=== PATIENT | female | born 1955 | race Caucasian/White ===

== ENCOUNTER 2016-05-10 06:24 | Inpatient (IN) | payer BC, OTHER ==
[2016-05-10] MEDS ORDERED: LIDOCAINE 1% 5 ML SDV ID PRN (06:50)
[2016-05-10] MEDS ORDERED: LR 1,000 ML IV ONE (06:50)
[2016-05-10] MEDS ORDERED: LIDOCAINE 1% 2 ML INJ ONE (06:51)
[2016-05-10] MEDS ORDERED: ONDANSETRON 4 MG/2 ML VIAL IVP PRN (07:04)
[2016-05-10] MEDS ORDERED: KETOROLAC 15 MG/1 ML SDV IVP ONE (07:04)
[2016-05-10] MEDS ORDERED: D5W 1/2 NS W/ 20 KCl/L 1,000 ML IV SCH (07:15)
[2016-05-10] MEDS ORDERED: CEFAZOLIN 2 GM/DEXTR 100 ML IV ONE (07:30)
[2016-05-10] MEDS ORDERED: FAMOTIDINE 20 MG TAB PO ONE (07:30)
[2016-05-10] MEDS ORDERED: CHLORHEXIDINE GLUC HIBICLENS 118 ML BTL TP ONE (07:30)
[2016-05-10] MEDS ORDERED: ROPI/epiNEPH/KETOROLAC/morphINE JOINT COCKTAIL IU ONE (07:30)
[2016-05-10] MEDS ORDERED: THROMBIN (BOVINE) 5,000 UNIT VIAL TP ONE (07:46)
[2016-05-10] MEDS ORDERED: CALCIUM CHLORIDE 1 GM/10 ML INJ ONE (07:46)
[2016-05-10] MEDS ORDERED: POLYMYXIN B SULFATE 500,000 UNIT/10 ML SYR IRR ONE (07:46)
[2016-05-10] MEDS ORDERED: fentaNYL 250 MCG/5 ML INJ ONE (07:47)
[2016-05-10] MEDS ORDERED: ROPIVACAINE HCL 150 MG/30 ML INJ ONE (07:47)
[2016-05-10] MEDS ORDERED: LIDOCAINE 2% 100 MG/5 ML SYR ONE (07:47)
[2016-05-10] MEDS ORDERED: ROCURONIUM 50 MG/5 ML VIAL ONE (07:47)
[2016-05-10] MEDS ORDERED: PROPOFOL 200 MG/20 ML VIAL ONE (07:47)
[2016-05-10] MEDS ORDERED: MIDAZOLAM 2 MG/2 ML VIAL ONE (08:24)
[2016-05-10] MEDS ORDERED: PHENYLEPHRINE HCL 100 MCG/ML SYR ONE (10:20)
[2016-05-10] MEDS ORDERED: epHEDrine SULFATE 10 MG/ML SYR ONE (10:20)
[2016-05-10] MEDS ORDERED: KETOROLAC 15 MG/1 ML SDV ONE (10:50)
[2016-05-10] MEDS: KETOROLAC 15 MG/1 ML SDV IVP SCH ×3 (11:34→23:30)
[2016-05-10] MEDS: ceFAZolin 2 GM/DEXTROSE 100 ML IV SCH ×2 (16:12→21:36)
[2016-05-10] MEDS: TAPENTADOL HCL 50 MG TAB PO PRN (21:36)
[2016-05-11] MEDS: KETOROLAC 15 MG/1 ML SDV IVP SCH (05:02)
[2016-05-11] MEDS: TAPENTADOL HCL 50 MG TAB PO PRN ×3 (07:18→15:21)
--- NOTE | 2016-05-11 08:15 | PDIAF ---
- Diagnosis Diagnosis: right shoulder djd, rotator cuff tear Code Status: Full Code - Medication Management Discharge Medications: Medications to Continue on Transfer Amoxicillin 1,000 mg PO BID 04/12/16 [Last Taken Unknown] Atorvastatin Calcium [Lipitor 40 mg (*)] 40 mg PO DAILY 04/12/16 [Last Taken ] Diazepam [Valium 10 MG (*)] 5 mg PO HS PRN 04/12/16 [Last Taken Unknown] Famciclovir [Famvir] 500 mg PO Q8H PRN 04/12/16 [Last Taken 04/19/16] Gabapentin [Neurontin 300 MG (*)] 300 mg PO HS PRN 04/12/16 [Last Taken 05/03/16 ] Ibuprofen [Motrin (*)] 400 mg PO DAILY PRN 04/12/16 [Last Taken 05/03/16] Lisinopril [Zestril 10 mg (*)] 10 mg PO DAILY 04/12/16 [Last Taken 05/10/16 05: 30] Omeprazole 40 mg PO DAILY 04/12/16 [Last Taken 05/10/16 05:30] Discharge Medications: Refer to the Discharge Home Medication list for PRN reason. - Orders Services needed: Physical Therapy Diet Recommendation: no restrictions on diet Diet Texture: Regular Texture Diet Activity/Weight Bearing Restrictions: pendulum rom. non weight bearing. sling when not performing pendulum exercises. daily dressing changes. may shower without bandage. f/u at two weeks. seek attn for increasing pain, shortness or breath, drainage, infection or other focal complaint - Follow Up Care Current Providers and Referrals: Sinan Nguyen MD [Primary Care Provider] -
[2016-05-11] MEDS: ONDANSETRON 4 MG/2 ML VIAL IVP PRN ×2 (08:17→14:48)
[2016-05-11] MEDS ORDERED: DIAZEPAM 5 MG TAB PO PRN (09:53)
[2016-05-11] MEDS: ACETAMINOPHEN 325 MG TAB PO PRN ×3 (11:02→23:54)
--- NOTE | 2016-05-11 11:31 | SOAPPROG ---
SOAP Progress Note Assessment/Plan: Assessment: s/p right tsa rev Plan: patient poorly tolerant of narcotics. difficulty controlling pain d/c when stable\ dvt precautions 05/11/16 11:28 Subjective: pain 8/10 no cp or sob tolerating po pos vomiting Objective: Vital Signs Temp Pulse Resp BP Pulse Ox 36.7 C 83 18 115/70 97 05/11/16 07:33 05/11/16 07:33 05/11/16 07:33 05/11/16 07:33 05/11/16 07:33 05/10/16 05/11/16 05/12/16 05:59 05:59 05:59 Intake Total 3679 Output Total 1650 Balance 2028 dressing intact intact digital flexion and ext decreased subj sensation at thumb no drainage xrays stable alignment no fx or lucency ICD10 Worksheet Patient Problems: Problems Problem Status Onset Arthritis of right shoulder region Acute - ICD10 Problem Qualifiers (1) Arthritis of right shoulder region
[2016-05-11 19:26] VITALS: RESP 16
[2016-05-11] MEDS ORDERED: POLYETHYLENE GLYCOL 3350 17 GM PKT PO PRN (21:39)
[2016-05-11] MEDS: ONDANSETRON DISINTEGRATING 4 MG TAB PO PRN (21:53)
[2016-05-11] MEDS ORDERED: fentaNYL 12 MCG PATCH TD ONE (22:00)
[2016-05-12] MEDS: ONDANSETRON DISINTEGRATING 4 MG TAB PO PRN ×3 (05:26→16:57)
[2016-05-12] MEDS: TAPENTADOL HCL 50 MG TAB PO PRN (05:27)
--- NOTE | 2016-05-12 06:51 | SOAPPROG ---
SOAP Progress Note Assessment/Plan: Assessment: s/p right tsa rev Plan: patient poorly tolerant of narcotics. difficulty controlling pain d/c when stable\ dvt precautions 05/11/16 11:28 Subjective: complains of pain at shoulder left elbow left small finger mod thumb numbness kidney pain no urinary difficulty Objective: Vital Signs Temp Pulse Resp BP Pulse Ox 37.0 C 99 16 125/75 H 90 L 05/12/16 04:32 05/12/16 04:32 05/12/16 04:32 05/12/16 04:32 05/12/16 04:32 05/11/16 05/12/16 05/13/16 05:59 05:59 05:59 Intake Total 3679 1600 Output Total 1650 1000 Balance 9 600 seated in bed nad dressing intact intact r,u,decreased 50% at thumb median intact digital flex and ext warm and pink ICD10 Worksheet Patient Problems: Problems Problem Status Onset Arthritis of right shoulder region Acute - ICD10 Problem Qualifiers (1) Arthritis of right shoulder region
--- NOTE | 2016-05-12 06:54 | PDIAF ---
- Diagnosis Diagnosis: right shoulder djd, rotator cuff tear Code Status: Full Code - Medication Management Discharge Medications: Medications to Continue on Transfer Amoxicillin 1,000 mg PO BID 04/12/16 [Last Taken Unknown] Atorvastatin Calcium [Lipitor 40 mg (*)] 40 mg PO DAILY 04/12/16 [Last Taken ] Famciclovir [Famvir] 500 mg PO Q8H PRN 04/12/16 [Last Taken 04/19/16] Gabapentin [Neurontin 300 MG (*)] 300 mg PO HS PRN 04/12/16 [Last Taken 05/03/16 ] Ibuprofen [Motrin (*)] 400 mg PO DAILY PRN 04/12/16 [Last Taken 05/03/16] Lisinopril [Zestril 10 mg (*)] 10 mg PO DAILY 04/12/16 [Last Taken 05/10/16 05: 30] Omeprazole 40 mg PO DAILY 04/12/16 [Last Taken 05/10/16 05:30] Diazepam [Valium 10 MG (*)] 5 mg PO HS PRN #40 tab 05/12/16 [Last Taken Unknown] Diazepam [Valium 5 MG (*)] 5 - 10 mg PO Q6HRS PRN #50 tab 05/12/16 [Last Taken Unknown] Ondansetron Odt [Zofran Odt 4 mg (*)] 4 mg PO Q4 PRN #30 tab 05/12/16 [Last Taken Unknown] Tapentadol HCl [Nucynta 50 MG (*)] 50 - 100 mg PO Q4HRS PRN #80 tab 05/12/16 [ Last Taken Unknown] Discharge Medications: Refer to the Discharge Home Medication list for PRN reason. - Orders Services needed: Physical Therapy Diet Recommendation: no restrictions on diet Diet Texture: Regular Texture Diet Activity/Weight Bearing Restrictions: pendulum rom. non weight bearing. sling when not performing pendulum exercises. daily dressing changes. may shower without bandage. f/u at two weeks. seek attn for increasing pain, shortness or breath, drainage, infection or other focal complaint - Follow Up Care Current Providers and Referrals: Sinan Nguyen MD [Primary Care Provider] -
[2016-05-12] MEDS ORDERED: fentaNYL 25 MCG PATCH TD SCH (07:00)
[2016-05-12 07:41] VITALS: PULSE 83; TEMP 97.5; O2SAT 98
[2016-05-12] MEDS: ACETAMINOPHEN 325 MG TAB PO PRN ×2 (08:57→15:10)
[2016-05-12 16:46] VITALS: BP 132/80
--- NOTE | 2016-05-13 21:46 | GDS ---
[f rep st] DISCHARGE SUMMARY ADMITTING DIAGNOSIS: Right rotator cuff arthropathy. POSTOPERATIVE DIAGNOSIS: Right rotator cuff arthropathy. PROCEDURE: Right reverse total shoulder arthroplasty. OPERATIVE INDICATIONS: The patient is a 60-year-old woman who has failed rotator cuff repair and de veloped arthritis to her right shoulder. She has pain and limitation of her activities of daily sophie ing. I therefore recommended reverse shoulder replacement. She understood the risks, benefits, alt ernatives, and wished to proceed. Written consent was signed and placed in the patient's chart. HOSPITAL COURSE: The patient was admitted to the hospital floor after uncomplicated reverse shoulde r arthroplasty. Her postoperative course was complicated by issues of pain control and poor narcoti c tolerance, as well as nausea. On postop day #2, she was stable for discharge. DISCHARGE ACTIVITY: She is pendulum range of motion. Daily dressing changes. No soaking or immers ion. May shower without the bandage. Seek attention for increasing redness, swelling, drainage, dis charge, or other focal complaint. DISCHARGE MEDICATIONS: See chart. FOLLOWUP: Follow up in 2 weeks. /[id number]/MODL
--- NOTE | 2016-05-13 22:16 | GOP ---
[f rep st] OPERATIVE REPORT DATE OF OPERATION: 05/10/2016 SURGEON: Efren Mcneil MD FORENSIC ARTIST: Remy Tyson, surgical garment assembler, who was a medical necessity for the entirety of the case. PREOPERATIVE DIAGNOSIS: Right shoulder rotator cuff arthropathy. POSTOPERATIVE DIAGNOSIS: Right shoulder rotator cuff arthropathy. PROCEDURE PERFORMED: Right reverse total shoulder arthroplasty. FINDINGS: SPECIMENS: To Pathology, the humeral head. INDICATIONS: Patient is a 60-year-old woman who is known to me from previous rotator cuff repair. She has developed failure of her repair and progression of her arthritis. She now has limitations i n her activities of daily living. Given the presence of rotator cuff arthropathy, I have recommende d operative intervention with a reverse shoulder replacement as recommended procedure of choice. I have outlined the surgical procedure, risks, benefits, and alternatives. She wished to proceed. Wr willieen consent was signed and placed in the patient's chart. DESCRIPTION OF PROCEDURE: Patient was identified in the preanesthesia area. The right shoulder alexandrea evette demarcated as the operative site with indelible marker. She was given 2 g of Ancef intravenous en route to the operative suite. In the OR, an interscalene block was placed followed by general e ndotracheal anesthesia. Attention was turned to the right shoulder. She was positioned in the beac h chair position. All bony prominences were well padded including the use of a neurological head ho lder. Appropriate time-out procedure was carried out. An anterior incision was made over the shoul tawnya. Deltopectoral incision was proceeded. This was split through the subcutaneous tissue. The ce phalic vein was identified and several fibers of the deltoid were retracted with the cephalic vein m edially. A self-retaining retractor was placed deep to this. The subscapularis tendon was then seun vated across the anterior surface of the shoulder into the interval between the remaining rotator cu ff. Several loose sutures were removed from the previous rotator cuff repair. The shoulder was con tinuously externally rotated and the inferior capsule freed. Retractors were placed across the supe rior and inferior aspect. A bony cut was made with the arm in 20 degrees of external rotation and t he proximal bone fragment removed. Two anchors and suture knots were removed from the previous rota tor cuff repair. Inferior marginal osteophytes were sharply debrided. The canal was reamed to a si ze 12 stem. A 1 body was utilized and reamed across proximal surface. Retractors were placed allow ing visualization of the underlying glenoid. The remaining labrum was sharply excised. A pin was p laced in the posterior inferior corner of the central aspect of the glenoid. This was then reamed a ppropriately. The peripheral area was reamed. A metaglene component was secured with both locking and nonlocking screws and a 42 mm Glenosphere was affixed. The trial stem was then assembled with 2 0 degrees of retroversion on the body stem interface and ultimately a +3 polyethylene spacer was mireille ected. This allowed full range of motion without instability throughout the flexion-extension arc. The final polyethylene was then impacted, confirmed to be fully seated. The wound was copiously ir rigated with pulsatile lavage solution, closed in layers using 0 Vicryl, 2-0 Monocryl, and marian. A sterile dressing, Cryo/Cuff shoulder immobilizer was placed. Patient was awakened, extubated, an d taken to the recovery room in good stable condition. TOTAL TOURNIQUET TIME: None. COMPLICATIONS: None. IMPLANTS: A [email or web address] Delta Xtend 42 mm Glenosphere. Three locking and 1 nonlocking screws. A size 12 modular humeral stem with a size 1 centered epiphysis and a 42, +3 standard polyethylene cup. /[id number]/MODL
== END 2016-05-12 17:23 | disposition home or self-care (01) | DRG 483 ==
LOC: F3N 06:24
PROVIDERS: ADMIT Orthopaedic Surgery; ATTEND Orthopaedic Surgery
PROC: 0RRJ00Z Replacement of Right Shoulder Joint with Reverse Ball and Socket Synthetic Substitute, Open Approach (ICD-10-PCS; principal; 2016-05-10 08:30)
DX: M75.121 Complete rotator cuff tear or rupture of right shoulder, not specified as traumatic (principal); I10 Essential (primary) hypertension; K21.9 Gastro-esophageal reflux disease without esophagitis; Z85.820 Personal history of malignant melanoma of skin
CPT/HCPCS: 97161-GP; 97165-GO; 97166-GO; 97535-GO; C1713; J0171; J0690; J1885; J2001; J2250; J2370; J2405; J2704; J2795; J3010

== ENCOUNTER → 2017-01-19 | Outpatient (CLI) | payer BC | LOC: BMCIMAGING 10:07 | PROVIDERS: ATTEND Orthopaedic Surgery | DX: Z47.1 Aftercare following joint replacement surgery (principal); Z96.611 Presence of right artificial shoulder joint ==